=== PATIENT | male | born 1970 ===

== ENCOUNTER 2021-11-13 15:48 | Emergency (ER) | payer MEDICAID ==
[2021-11-13] MEDS ORDERED: Morphine 2 MG/ML SYRINGE IVPUSH ONE (16:39)
[2021-11-13 16:50] LABS: BLOOD UREA NITROGEN,BUN 12 mg/dL (7.0-18.0); CHLORIDE,CL 98 mmol/L (98-107); ESTIMATED GFR > 60.0 ml/min; GLUCOSE RANDOM 103 mg/dL (74-106); POTASSIUM,K 4.3 mmol/L (3.5-5.1); SODIUM,NA 132 mmol/L (136-148)
[2021-11-13 17:47] VITALS: BP 136/76; PULSE 112
[2021-11-13] MEDS ORDERED: Acetaminophen 500 MG Tab PO ONE (17:47)
[2021-11-13] MEDS ORDERED: cefTRIAXone 1 GM in Sodium Chloride 0.9% 50 ML IV ONE (17:57)
[2021-11-13] MEDS ORDERED: Doxycycline 100 MG Cap PO ONE (17:58)
[2021-11-13] MEDS ORDERED: Sodium Chloride 0.9% 500 ML IV SCH (18:00)
[2021-11-13] MEDS ORDERED: Ibuprofen 800 MG Tab PO ONE (18:33)
== END 2021-11-13 18:56 | disposition left against medical advice (07) ==
LOC: MW.ED 15:48
DX: J18.9 Pneumonia, unspecified organism (principal); I10 Essential (primary) hypertension; Z88.1 Allergy status to other antibiotic agents; Z79.899 Other long term (current) drug therapy; Z20.822 Contact with and (suspected) exposure to COVID-19
CPT/HCPCS: 36415; 71045; 80053; 83605; 83880; 84484; 85025; 85610; 87040; 87635; 93005; 96365; 96375; 99285; A9270; J0696; J2270; J7040; U0002

== ENCOUNTER 2023-01-17 14:17 | Emergency (ER) | payer BC ==
[2023-01-17] MEDS ORDERED: Ketorolac 30 MG/ML SDV IVPUSH ONE (14:41)
[2023-01-17 14:55] LABS: BASOPHILS PERCENT AUTO 0.3 % (0.0-1.5); EOSINOPHILS ABSOLUTE AUTO 0.1 K/uL (0.0-0.7); EOSINOPHILS PERCENT AUTO 1.5 % (0.0-7.0); HEMATOCRIT 45.4 % (38.0-50.0); HEMOGLOBIN 14.9 g/dL (13.0-17.0); LYMPHOCYTES ABSOLUTE AUTO 1.4 K/uL (0.6-2.4); LYMPHOCYTES PERCENT AUTO 17.7 % (16.0-40.0); MEAN CORPUSCULAR HEMOGLOBIN 31.7 pg (27.0-32.0); MEAN CORPUSCULAR HGB CONC 32.8 g/dL (31.0-37.0); MEAN CORPUSCULAR VOLUME 96.6 fL (80.0-98.0); MONOCYTES ABSOLUTE AUTO 0.7 K/uL (0.0-0.8); MONOCYTES PERCENT AUTO 9.2 % (0.0-15.0); NEUTROPHILS ABSOLUTE AUTO 5.6 K/uL (1.4-5.7); NEUTROPHILS PERCENT AUTO 71.3 % (48.0-80.0); NRBC ABSOLUTE 0 K/uL; PLATELET COUNT,PLT 215 K/uL (150-400); WHITE BLOOD CELL COUNT,WBC 7.84 K/uL (4.0-11.0)
[2023-01-17 15:17] LABS: A/G RATIO 0.9 (0.9-1.6); ALBUMIN 3.5 g/dL (3.4-5.0); BILIRUBIN TOTAL 0.6 mg/dL (0.2-1.0); C-REACTIVE PROTEIN 1.5 mg/dL (0.00-0.90); CALCIUM 8.7 mg/dL (8.5-10.1); CREATININE 1.1 mg/dL (0.8-1.3); EST CRCL DRUG DOSING (CG) 95.35 mL/min; POTASSIUM,K 4.1 mmol/L (3.5-5.1); PROTEIN TOTAL,TP 7.3 g/dL (6.4-8.2); URIC ACID 8.2 mg/dL (2.6-7.2)
[2023-01-17] MEDS ORDERED: predniSONE 20 MG Tab PO STA (15:28)
[2023-01-17 16:19] VITALS: BP 131/67; PULSE 80
== END 2023-01-17 16:07 | disposition home or self-care (01) ==
LOC: MW.ED 14:17
DX: M10.9 Gout, unspecified (principal); I10 Essential (primary) hypertension; Z88.1 Allergy status to other antibiotic agents; Z79.899 Other long term (current) drug therapy
CPT/HCPCS: 36415; 73562; 80053; 84550; 85025; 85652; 86140; 96374; 99283; A9270; J1885; 99284